=== PATIENT | female | born 1985 | race Caucasian/White ===

== ENCOUNTER → 2020-11-15 15:21 | Outpatient (BNVA) | payer MEDICAID, SELFPAY | PROVIDERS: Family Provider Family Medicine; PCP Nurse Practitioner Family; Visit Provider Nurse Practitioner Family | DX: R07.89 Other chest pain (principal); J98.8 Other specified respiratory disorders | CPT/HCPCS: 71046; 71100; 80053; 85025 ==

== ENCOUNTER 2023-12-31 10:02 | Emergency (ER) | payer SELFPAY ==
[2023-12-31 10:08] VITALS: BP 152/105; PULSE 90; RESP 18; TEMP 36.5; O2SAT 95; BMI 35.7
--- NOTE | 2023-12-31 10:29 | XRR_ITS ---
PROCEDURE INFORMATION: Exam: XR Left Ribs with PA Chest Exam date and time: 12/31/2023 10:32 AM Age: 38 years old Clinical indication: Chest wall pain; Left TECHNIQUE: Imaging protocol: Radiologic exam of the left ribs with PA chest. Views: 3 views COMPARISON: CR XR chest 2V* [id number] 15/11/2020 15:23 FINDINGS: Lungs: Unremarkable. No consolidation. Pleural spaces: No pleural effusions or evidence of a pneumothorax. Heart/Mediastinum: The heart and mediastinum are unremarkable. Bones/joints: There is a left posterolateral 7th rib fracture. No other fractures are identified. Soft tissues: The chest is clear. XR/XR ribs LT mn 3V w [id number] IMPRESSION: 1. Clear chest 2. Left posterolateral 7th rib fracture
--- NOTE | 2023-12-31 10:38 | W.ED.GENADLT ---
HPI - General Adult General: Chief complaint: General Medical Stated complaint: Left side rib pain Time Seen by Provider: 12/31/23 10:13 Source: patient Mode of arrival: ambulatory Limitations: no limitations History of Present Illness: 38-year-old female chronic smoker states she has been having increased cough was coughing at work yesterday and felt a pop in the left side of her chest. States she had some bruising to her chest wall along with increased pain states pain is much worse with coughing breathing or palpation. She denies any fever denies any pain at rest. Associated symptoms: Reports chest pain; Deny dyspnea, headache(s), nausea, rash or vomiting Review of Systems Const: Denies: fever(s), chills, body aches or change in appetite ENMT: Denies: throat pain or dental pain Card: Reports: chest pain Resp: Denies: dyspnea GI: Denies: abdominal pain, nausea, vomiting or diarrhea Musc: Denies: neck pain or back pain Skin/Breast: Denies: rash Neuro: Denies: headache(s) PFSH ED PFSH: Family History Father Diabetes Grandfather Diabetes Social History Smoking and tobacco/nicotine status: current every day tobacco/nicotine user cigarettes Packs smoked per day: 1 Second hand smoke exposure: Yes Alcohol intake: never Substance/Drug Use: never Adopted: No Caregiver/support person: No Lives independently: Yes Household members: significant other Housing: House Marital status: Single Number of children: 2 Highest education level completed: Some College, No Degree service: No Current occupational status: employed Physical Exam Const: COMMON NORMALS: no acute distress, patient oriented x3 and healthy appearing HENMT: COMMON NORMALS: normocephalic and atraumatic HEAD & SCALP: normocephalic and atraumatic Eye: COMMON NORMALS: Equal, round and reactive pupils present and EOMs intact bilaterally PUPIL: Yes Equal, round and reactive pupils present Neck/C-Spine: COMMON NORMALS: full ROM and supple Chest: COMMONS NORMALS: normal inspection of the chest OTHER: point tender over left chest reproduces pain Resp: COMMON NORMALS: normal respiratory effort, No retractions, No use of accessory muscles and clear to auscultation bilaterally AUSCULTATION: clear to auscultation bilaterally Cardio: COMMON NORMALS: regular rate, regular rhythm and No murmurs present (Cardio) RATE: regular rate RHYTHM: regular rhythm Extremity: COMMON NORMALS: normal to inspection and full ROM Neuro: COMMON NORMALS: patient oriented x3, moves all extremities and no focal motor deficits Psych: COMMON NORMALS: mental status grossly normal, Normal thought process present and cooperative THOUGHT PROCESS: Normal thought process present Skin: COMMON NORMALS: no rashes or lesions noted and no wounds GENERAL SKIN EXAM: no rashes or lesions noted Course Vital Signs: Vital signs: Vital Signs Temperature 97.7 F 12/31/23 10:08 Pulse Rate 89 12/31/23 11:17 Respiratory Rate 16 12/31/23 11:17 Blood Pressure 150/102 12/31/23 11:00 Pulse Oximetry 97 12/31/23 11:17 Oxygen Delivery Me thod Room Air 12/31/23 11:17 MDM - General Adult Medical Decision Making Patient presents here with rib fracture likely from coughing she has no signs of pneumothorax or pneumonia patient stable for discharge we will place her on pain medication she is follow-up with PCP return if worsening. Medical Records I reviewed the patient's medical records. Lab Data Radiology Impressions Ribs X-Ray 12/31/23 10:29 IMPRESSION: 1. Clear chest 2. Left posterolateral 7th rib fracture All radiology interpretation(s) finalized by discharge Discharge Plan Discharge Patient Disposition: Home Clinical Impression: Left rib fracture Qualifiers: Encounter type: initial encounter Rib fracture type: single rib Fracture type: closed Qualified Code(s): S22.32XA - Fracture of one rib, left side, initial encounter for closed fracture Condition: Stable Prescriptions: New hydrocodone-acetaminophen 5-325 mg tablet 1 tab PO Q6H PRN (Reason: pain) Qty: 14 0RF No Action ibuprofen 200 mg Tablet 200 mg PO Q6H PRN (Reason: Pain) Discharge Orders: Discharge ED (Routine); Ordered 12/31/23 Ordered By: Cornelius Butler Referrals: Effie Loera FNP-C [Primary Care Provider] - Dannie Stapleton MD [Family Provider] - Discharge Diet: Advance as tolerated Discharge Activity: Resume usual activity Patient Instructions: Rib Fracture (ED), Opioid Safety Stand Alone Forms: Work/School Release Coding Level of Care Code ED Chief Chemist for Hossein Villarreal
[2023-12-31] MEDS: dexamethasone 10 mg/mL INJ IM (10:47)
[2023-12-31] MEDS: ketorolac 30 mg/mL INJ IM (10:47)
[2023-12-31] MEDS: HYDROcodone-acetaminophen 5-325 mg Tablet 1 TAB PO (10:49)
[2023-12-31 11:00] VITALS: BP 150/102; PULSE 82; O2SAT 95
[2023-12-31] MEDS: albuterol 8 gm MDI 2 PUFF INHALATION (11:16)
[2023-12-31 11:17] VITALS: PULSE 89; RESP 16; O2SAT 97
[2023-12-31 11:35] VITALS: PULSE 89; O2SAT 95
== END 2023-12-31 11:36 | disposition home or self-care (01) ==
PROVIDERS: Emergency Provider Emergency Medicine; PCP Nurse Practitioner Family
DX: S22.32XA Fracture of one rib, left side, initial encounter for closed fracture (principal); F17.210 Nicotine dependence, cigarettes, uncomplicated; X50.9XXA Other and unspecified overexertion or strenuous movements or postures, initial encounter
CPT/HCPCS: 71101; 94640; 96372; 99284; J1100; J1885; J3535